=== PATIENT | female | born 1960 | race Caucasian/White ===

== ENCOUNTER → 2018-03-19 | Outpatient (CLI) | payer BC, OTHER ==
[~2018-03-19] MED LIST: AMBIEN 10MG10 MG PO; ASPIR-LOW81 MG PO; BACTRIM DS 8001 TAB PO; CEPHALEXIN500 M1 PO; CINNAMON500 MG PO; EXCEDRIN1 TAB PO; LORTAB 5/500 501 TAB PO; LOVAZA1 GM PO; METAMUCIL1 PDR PO; MVI PO; NO HOME MEDICATIONS; ULTRAM ER100 MG; ZOFRAN 4MG T4 MG/TAB PO
== END ==
LOC: COL.RAD 11:13
DX: R31.9 Hematuria, unspecified (principal)

== ENCOUNTER → 2019-02-28 | Outpatient (CLI) | payer BC, OTHER | LOC: COL.RAD 09:57 | DX: H60.12 Cellulitis of left external ear (principal) | CPT/HCPCS: Q9967 ==

== ENCOUNTER 2021-07-21 13:52 | Emergency (ER) | payer OTHER ==
[~2021-07-21] VITALS: Ht 162.6 cm; Wt 79.5 kg
[2021-07-21 13:55] VITALS: TEMP 97.7
[2021-07-21] MEDS ORDERED: PREMARIN .3MG0.3 MG PO (14:05)
[2021-07-21] MEDS ORDERED: INDERAL LA 80MG80 MG PO (14:05)
[2021-07-21] MEDS ORDERED: PRIL40 PO (14:05)
[2021-07-21] MEDS ORDERED: PHARMASSURE MA500 MG PO (14:06)
[2021-07-21 14:32] VITALS: BP 137/87; PULSE 58
== END 2021-07-21 14:36 | disposition home or self-care (01) ==
LOC: COL.ER 13:52
DX: S61.217A Laceration without foreign body of left little finger without damage to nail, initial encounter (principal); I10 Essential (primary) hypertension; K21.9 Gastro-esophageal reflux disease without esophagitis; G43.909 Migraine, unspecified, not intractable, without status migrainosus; Z23 Encounter for immunization; Z79.899 Other long term (current) drug therapy; W26.9XXA Contact with unspecified sharp object(s), initial encounter